=== PATIENT | female | born 1945 | race Caucasian/White ===

== ENCOUNTER 2021-05-17 20:27 | Emergency (ER) | payer MEDICAID ==
[~2021-05-17] VITALS: Ht 157.5 cm; Wt 86.2 kg
[~2021-05-17 20:27] MED LIST: ALBU0.5N2 IN; MULT-1018 OR; TIOTCAP IN
[2021-05-17] MEDS ORDERED: MORPHINE SULFATE INJECTION 2 MG/ML SYRG IM ONE (23:15)
[2021-05-18 00:36] VITALS: BP 122/62
== END 2021-05-18 01:47 | disposition home or self-care (01) ==
LOC: ER 20:27 → EDBD 20:27 → ER 05-18 01:47
DX: T84.030A Mechanical loosening of internal right hip prosthetic joint, initial encounter (principal); M85.861 Other specified disorders of bone density and structure, right lower leg; M25.551 Pain in right hip; M25.561 Pain in right knee; J44.9 Chronic obstructive pulmonary disease, unspecified; K21.9 Gastro-esophageal reflux disease without esophagitis; E78.5 Hyperlipidemia, unspecified; I10 Essential (primary) hypertension; Z90.49 Acquired absence of other specified parts of digestive tract; Z87.891 Personal history of nicotine dependence; X50.1XXA Overexertion from prolonged static or awkward postures, initial encounter; Y93.01 Activity, walking, marching and hiking; Y92.89 Other specified places as the place of occurrence of the external cause; Y99.8 Other external cause status
CPT/HCPCS: 72131; 73502; 73562; 96372; 99284; J2270